=== PATIENT | male | born 1950 | race Caucasian/White ===

== ENCOUNTER 2017-09-01 13:44 | Emergency (ER) | payer OTHER, BC ==
[2017-09-01 14:38] LABS: ADD MAN DIFF? NO
[2017-09-01 14:40] LABS: BASOPHIL # 0.1 10^3/ul (0.0-0.1); BASOPHILS % 0.9 % (0.0-2.0); EOSINOPHILS # 0.2 10^3/ul (0.0-0.5); HEMATOCRIT 37.4 % (42.0-52.0); HEMOGLOBIN 12.8 g/dl (14.0-18.0); LYMPHOCYTES # 1.7 10^3/ul (0.8-2.9); LYMPHOCYTES % 30.2 % (15.0-51.0); MEAN CORPUSCULAR HEMOGLOBIN 34.7 pg (29.0-33.0); MEAN CORPUSCULAR HGB CONC 34.2 g/dl (32.0-37.0); MEAN CORPUSCULAR VOLUME 101.4 fl (82.0-101.0); MEAN PLATELET VOLUME 8.6 fl (7.4-10.4); MONOCYTE # 0.7 10^3/ul (0.3-0.9); MONOCYTES % 11.8 % (0.0-11.0); NEUTROPHILS % 53.7 % (39.0-77.0); PLATELET COUNT 387 10^3/UL (140-415); RED BLOOD COUNT 3.69 10^6/ul (4.70-6.10)
[2017-09-01 14:40] LABS: WHITE BLOOD COUNT 5.7 10^3/ul (4.8-10.8)
[2017-09-01] MEDS: IBUPROFEN 600 MG TAB PO (14:45)
[2017-09-01] MEDS: SOD CHLORIDE 0.9% 500 ML IV (14:45)
[2017-09-01 15:03] LABS: ANION GAP 18 (8-16); BLOOD UREA NITROGEN 21 mg/dl (7-20); CALCIUM 9.3 mg/dl (8.4-10.2); CARBON DIOXIDE 21 mmol/L (21-31); CHLORIDE 106 mmol/L (97-110); GLUCOSE 108 mg/dl (70-220); POTASSIUM 4.5 mmol/L (3.5-5.1); SODIUM 140 mmol/L (135-144)
[2017-09-01 15:19] LABS: TROPONIN-I < 0.012 ng/ml (0.000-0.120)
== END 2017-09-01 18:25 | disposition home or self-care (01) ==
LOC: E/R 13:44
DX: S52.501A Unspecified fracture of the lower end of right radius, initial encounter for closed fracture (principal); S52.601A Unspecified fracture of lower end of right ulna, initial encounter for closed fracture; J44.9 Chronic obstructive pulmonary disease, unspecified; I10 Essential (primary) hypertension; W01.0XXA Fall on same level from slipping, tripping and stumbling without subsequent striking against object, initial encounter; Y92.009 Unspecified place in unspecified non-institutional (private) residence as the place of occurrence of the external cause; Z87.891 Personal history of nicotine dependence
CPT/HCPCS: 29125; 36415; 73110-RT; 80048; 84484; 85025; 93005; 99285-25